=== PATIENT | male | born 1965 | race Caucasian/White ===

== ENCOUNTER 2024-04-29 20:14 | Inpatient (IN) | payer OTHER ==
[~2024-04-29] VITALS: Ht 165.1 cm; Wt 89.0 kg
[2024-04-29] MEDS: DILTIAZEM HCL 5MG/ML 5ML VIAL IV ONE ×2 (20:54→21:17)
[2024-04-29 21:20] LABS: EOSINOPHILS % 1.1 % (0.0-5.0); HEMOGLOBIN. 15.4 g/dL (14.0-18.0); LYMPHOCYTES % 36.8 % (20.0-50.0); MEAN CORPUSCULAR HEMOGLOBIN 29.5 pg (28.0-32.0); MEAN CORPUSCULAR HGB CONC 33.5 g/dL (31.0-37.0); MEAN CORPUSCULAR VOLUME 87.9 fL (80.0-94.0); MEAN PLATELET VOLUME 9.4 fl (7.4-10.4); MONOCYTES % 7.6 % (2.0-8.0); NEUTROPHILS % 53.5 % (40.0-76.0); PLATELET 207 x1000/uL (130-400); RED BLOOD CELL COUNT 5.23 mill/uL (4.7-6.1); RED CELL DISTRIBUTION WIDTH 13.4 % (11.6-14.6); WHITE BLOOD COUNT 6.6 x1000/uL (4.5-11.0)
[2024-04-29 21:26] LABS: CHLORIDE 110 mEq/L (98-107); POTASSIUM 3.7 mEq/L (3.5-5.1); SODIUM 142 mEq/L (136-145)
[2024-04-29 21:27] LABS: CALCIUM 9.9 mg/dL (8.7-10.4); CARBON DIOXIDE 28 mEq/L (21-32)
[2024-04-29 21:32] LABS: CREATININE 1.3 mg/dL (0.6-1.3); GLUCOSE 107 mg/dL (70-105); UREA NITROGEN BLOOD 18 mg/dL (9-23)
[2024-04-29 21:34] LABS: TROPONIN I HIGH SENSITIVITY 13 ng/L (3.0-53)
[2024-04-29] MEDS: ETOMIDATE 2MG/ML 10ML VIAL IV ONE (22:08)
[2024-04-29] MEDS ORDERED: DILTIAZEM HCL 120MG CAPSULE ER 24HR PO ONE (22:15)
[2024-04-29] MEDS ORDERED: MAGNESIUM/ALUMINUM HYDROXIDE/SIMETHICONE 30ML UDC PO PRN (22:30)
[2024-04-29] MEDS ORDERED: GUAIFENESIN 200MG/10ML SUGAR FREE UDC PO PRN (22:30)
[2024-04-29] MEDS ORDERED: CLONIDINE 0.1MG TABLET PO PRN (22:30)
[2024-04-29] MEDS ORDERED: ONDANSETRON HCL 4MG/2ML INJ IV PRN (22:30)
[2024-04-29] MEDS ORDERED: IPRATROPIUM/ALBUTEROL 0.5-3(2.5)MG/3ML NEB NEB PRN (22:30)
[2024-04-29] MEDS ORDERED: KETOROLAC 15MG/ML VIAL IV PRN (22:30)
[2024-04-29] MEDS ORDERED: DOCUSATE SODIUM 100MG CAPSULE PO PRN (22:30)
[2024-04-29] MEDS ORDERED: NITROGLYCERIN 0.4MG TABLET SL SL PRN (22:30)
[2024-04-29] MEDS ORDERED: ZOLPIDEM TARTRATE 5MG TABLET PO PRN (22:30)
[2024-04-29] MEDS ORDERED: ACETAMINOPHEN 325MG TABLET PO PRN ×2 (22:30)
[2024-04-29 23:06] LABS: IRON 69 ug/dL (65-175); TRIGLYCERIDE 165 mg/dL (0-150)
[2024-04-29 23:07] LABS: LDL CHOLESTEROL 119 mg/dL (5-100)
[2024-04-29 23:08] LABS: CHOLESTEROL 173 mg/dL (<200); HDL CHOLESTEROL 45 mg/dL (>55)
[2024-04-29 23:09] LABS: TOTAL IRON BINDING CAPACITY 108 ug/dl (250-425)
[2024-04-29 23:11] LABS: D-DIMER < 0.19 mg/L FEU (<0.50); INR 1.2
[2024-04-29 23:12] LABS: T4 FREE 1.62 ng/dL (0.89-1.76); THYROID STIMULATING HORMONE 4.34 uIU/mL (0.55-4.78); VITAMIN B12 SERUM 516 pg/mL (211-911)
[2024-04-29] MEDS: DILTIAZEM HCL 30MG TABLET PO NR (23:17)
[2024-04-29] MEDS: ENOXAPARIN 100MG/ML SYR SUBCUT NR (23:43)
[2024-04-30] MEDS ORDERED: DILTIAZEM HCL 30MG TABLET PO SCH
[2024-04-30 04:29] LABS: BASOPHILS % 0.9 % (0.0-2.0); EOSINOPHILS % 1.1 % (0.0-5.0); HEMATOCRIT. 44.8 % (42.0-52.0); HEMOGLOBIN. 14.6 g/dL (14.0-18.0); LYMPHOCYTES % 40.3 % (20.0-50.0); MEAN CORPUSCULAR HEMOGLOBIN 28.7 pg (28.0-32.0); MEAN CORPUSCULAR HGB CONC 32.7 g/dL (31.0-37.0); MEAN CORPUSCULAR VOLUME 87.8 fL (80.0-94.0); MEAN PLATELET VOLUME 8.7 fl (7.4-10.4); MONOCYTES % 7.1 % (2.0-8.0); NEUTROPHILS % 50.6 % (40.0-76.0); PLATELET 193 x1000/uL (130-400); RED CELL DISTRIBUTION WIDTH 13.6 % (11.6-14.6); WHITE BLOOD COUNT 7.1 x1000/uL (4.5-11.0)
[2024-04-30 04:38] LABS: CHLORIDE 110 mEq/L (98-107); POTASSIUM 3.9 mEq/L (3.5-5.1); SODIUM 142 mEq/L (136-145)
[2024-04-30 04:39] LABS: CALCIUM 9.4 mg/dL (8.7-10.4); CARBON DIOXIDE 28 mEq/L (21-32)
[2024-04-30 04:44] LABS: GLUCOSE 94 mg/dL (70-105); UREA NITROGEN BLOOD 18 mg/dL (9-23)
[2024-04-30 04:45] LABS: CREATINE KINASE MB FRACTION 2.3 ng/mL (0.5-3.6)
[2024-04-30 04:46] LABS: ALANINE AMINOTRANSFERASE 25 IU/L (10-49); ASPARTATE AMINOTRANSFERASE 17 IU/L (<34); BILIRUBIN TOTAL 0.5 mg/dL (0.1-1.0); PHOSPHORUS 3.9 mg/dL (2.5-4.9)
[2024-04-30 04:47] LABS: PROTEIN TOTAL 6.7 g/dL (6.0-8.3)
[2024-04-30] MEDS: DILTIAZEM HCL 30MG TABLET PO SCH (07:37)
[2024-04-30 08:00] VITALS: BP 120/66; PULSE 66; RESP 18; TEMP 36.50292; O2SAT 100
[2024-04-30 08:15] VITALS: BP 120/66; PULSE 66; RESP 18; TEMP 36.7516
[2024-04-30] MEDS: ENOXAPARIN 100MG/ML SYR SUBCUT SCH (09:24)
[2024-04-30] MEDS: FAMOTIDINE 20MG TABLET PO SCH (09:24)
[2024-04-30] MEDS: ASPIRIN 325MG EC TABLET PO SCH (09:24)
[2024-04-30 12:00] VITALS: BP 112/68; PULSE 70; RESP 18; TEMP 36.28068; O2SAT 96
[2024-04-30] MEDS: AMIODARONE 200MG TABLET PO SCH (14:20)
[2024-04-30 16:00] VITALS: BP 104/66; PULSE 74; RESP 18; TEMP 36.50292; O2SAT 98
[2024-04-30 16:52] LABS: CREATINE KINASE MB FRACTION 2.7 ng/mL (0.5-3.6)
[2024-04-30 20:00] VITALS: BP 144/77; PULSE 81; RESP 18; TEMP 36.3918; O2SAT 99
[2024-05-01] VITALS: BP 123/76; PULSE 64; RESP 19; TEMP 36.114; O2SAT 100
[2024-05-01 04:00] VITALS: BP 113/80; PULSE 74; RESP 19; TEMP 35.94732; O2SAT 100
[2024-05-01 08:00] VITALS: BP 141/94; PULSE 78; RESP 20; TEMP 36.44736; O2SAT 99
[2024-05-01 12:00] VITALS: BP 129/81; PULSE 88; RESP 19; TEMP 36.22512; O2SAT 100
[2024-05-01 16:00] VITALS: BP 126/78; PULSE 79; RESP 18; TEMP 36.33624; O2SAT 98
[2024-05-01 17:42] VITALS: BP 126/78; PULSE 79; TEMP 97.4; O2SAT 98
== END 2024-05-01 18:40 | disposition home or self-care (01) | DRG 310 ==
LOC: ER 20:14 → 5WST 22:11 → EDBEDREQ 22:23 → EDBEDREQTM 22:23 → 7EST 04-30 07:50
PROVIDERS: ADMIT Internal Medicine; ATTEND Internal Medicine
PROC: 5A2204Z Restoration of Cardiac Rhythm, Single (ICD-10-PCS; principal; 2024-04-29)
DX: I47.10 Supraventricular tachycardia, unspecified (principal); I48.91 Unspecified atrial fibrillation; I10 Essential (primary) hypertension; E03.9 Hypothyroidism, unspecified; E66.9 Obesity, unspecified; Z79.01 Long term (current) use of anticoagulants; Z68.32 Body mass index [BMI] 32.0-32.9, adult
CPT/HCPCS: 36415; 71045; 80048; 80053; 80061; 82550; 82553; 82607; 82746; 83036; 83540; 83550; 83605; 83735; 83880; 84100; 84145; 84439; 84443; 84484; 85025; 85379; 93005; 93306; 93970; 99291; J1650; J3490

== ENCOUNTER 2024-09-22 13:58 | Inpatient (IN) | payer OTHER ==
[~2024-09-22] VITALS: Ht 162.6 cm; Wt 86.2 kg
[2024-09-22 15:12] LABS: BASOPHILS % 0.6 % (0.0-2.0); HEMATOCRIT. 50.2 % (42.0-52.0); HEMOGLOBIN. 16.4 g/dL (14.0-18.0); LYMPHOCYTES % 14.9 % (20.0-50.0); MEAN CORPUSCULAR HEMOGLOBIN 28.1 pg (28.0-32.0); MEAN CORPUSCULAR HGB CONC 32.6 g/dL (31.0-37.0); MEAN CORPUSCULAR VOLUME 86.3 fL (80.0-94.0); MEAN PLATELET VOLUME 8.7 fl (7.4-10.4); MONOCYTES % 6.3 % (2.0-8.0); NEUTROPHILS % 77.2 % (40.0-76.0); PLATELET 217 x1000/uL (130-400); RED BLOOD CELL COUNT 5.82 mill/uL (4.7-6.1); RED CELL DISTRIBUTION WIDTH 13.9 % (11.6-14.6); WHITE BLOOD COUNT 7.3 x1000/uL (4.5-11.0)
[2024-09-22 15:17] LABS: CHLORIDE 104 mEq/L (98-107); POTASSIUM 4.3 mEq/L (3.5-5.1); SODIUM 141 mEq/L (136-145)
[2024-09-22 15:18] LABS: CALCIUM 9.7 mg/dL (8.7-10.4); CARBON DIOXIDE 30 mEq/L (21-32)
[2024-09-22 15:23] LABS: GLUCOSE 111 mg/dL (70-105); UREA NITROGEN BLOOD 13 mg/dL (9-23)
[2024-09-22 15:31] LABS: TROPONIN I HIGH SENSITIVITY < 4 ng/L (3.0-53)
[2024-09-22] MEDS: MECLIZINE 25MG TABLET PO ONE (19:54)
[2024-09-22] MEDS: SODIUM CHLORIDE 0.9% 1,000 ML IV ONE (20:01)
[2024-09-22] MEDS: ONDANSETRON HCL 4MG/2ML INJ IV ONE (20:01)
[2024-09-22] MEDS ORDERED: SIMV10TA97 MT (23:22)
[2024-09-22] MEDS ORDERED: METO25TA6 PO (23:22)
[2024-09-22] MEDS ORDERED: AMIO100T4 PO (23:22)
[2024-09-22] MEDS ORDERED: RIVA10TA MT (23:22)
[2024-09-22 23:39] VITALS: BP 136/65; PULSE 78; RESP 18; TEMP 36.7
[2024-09-23] VITALS: BP 130/80; PULSE 72; RESP 20; TEMP 36.1; O2SAT 96
[2024-09-23] MEDS ORDERED: MECLIZINE 25MG TABLET PO PRN (03:00)
[2024-09-23] MEDS ORDERED: IPRATROPIUM/ALBUTEROL 0.5-3(2.5)MG/3ML NEB HHN PRN (03:00)
[2024-09-23] MEDS ORDERED: ONDANSETRON HCL 4MG/2ML INJ IV PRN (03:00)
[2024-09-23] MEDS ORDERED: ACETAMINOPHEN 325MG TABLET PO PRN ×2 (03:00)
[2024-09-23 04:00] VITALS: BP 128/63; PULSE 74; RESP 20; TEMP 36.4; O2SAT 98
[2024-09-23] MEDS ORDERED: HYDRALAZINE 20MG/ML VIAL IV PRN (04:00)
[2024-09-23] MEDS: SODIUM CHLORIDE 0.9% 1,000 ML IV SCH (04:12)
[2024-09-23] MEDS: ENOXAPARIN 100MG/ML SYR SUBCUT SCH (05:09)
[2024-09-23 07:34] LABS: PROTHROMBIN TIME 11.1 sec (9.6-11.0)
[2024-09-23 08:00] VITALS: BP 100/60; PULSE 66; RESP 20; TEMP 36.6; O2SAT 97
[2024-09-23 08:06] LABS: INFLUENZA TYPE A Presumptive Negative (Pres. Neg.); INFLUENZA TYPE B Presumptive Negative (Pres. Neg.)
[2024-09-23 08:07] LABS: RESPIRATORY SYNCYTIAL VIRUS Not Detected (Not Detectd)
[2024-09-23] MEDS: METOPROLOL TARTRATE 25MG TABLET PO SCH (09:11)
[2024-09-23 09:12] LABS: CLARITY URINE CLEAR (CLEAR); COLOR URINE YELLOW (YELLOW); GLUCOSE URINE NEGATIVE (NEGATIVE); KETONES URINE NEGATIVE (NEGATIVE); LEUKOCYTE ESTERASE URINE NEGATIVE (NEGATIVE); NITRITE URINE NEGATIVE (NEGATIVE); OCCULT BLOOD URINE NEGATIVE (NEGATIVE); PROTEIN URINE NEGATIVE (NEGATIVE); SPECIFIC GRAVITY URINE 1.025 (1.005-1.030)
[2024-09-23] MEDS: PANTOPRAZOLE SODIUM 40 MG/VIAL IV SCH (09:29)
[2024-09-23 09:51] LABS: *AMPHETAMINES SCREEN URINE NEGATIVE (NEGATIVE)
[2024-09-23 09:52] LABS: *BARBITURATES SCREEN URINE NEGATIVE (NEGATIVE); *BENZODIAZEPINES SCREEN URINE NEGATIVE (NEGATIVE); *COCAINE SCREEN URINE NEGATIVE (NEGATIVE); CANNABINOID URINE SCREEN NEGATIVE (NEGATIVE); ECSTASY MDMA SCREEN URINE NEGATIVE (NEGATIVE); METHADONE URINE SCREEN NEGATIVE (NEGATIVE); OPIATES URINE SCREEN NEGATIVE (NEGATIVE); PHENCYCLIDINE URINE SCREEN NEGATIVE (NEGATIVE)
[2024-09-23 12:00] VITALS: BP 128/76; PULSE 86; RESP 18; TEMP 36.7; O2SAT 97
[2024-09-23 16:00] VITALS: BP 138/79; PULSE 88; RESP 18; TEMP 36.5; O2SAT 98
[2024-09-23] MEDS ORDERED: MECL-299 PO (16:33)
[2024-09-23 16:43] VITALS: BP 100/60; PULSE 66; TEMP 98.2; O2SAT 98
[2024-09-23] MEDS ORDERED: ATORVASTATIN CALCIUM 40MG TABLET PO SCH (21:00)
== END 2024-09-23 17:53 | disposition home or self-care (01) | DRG 866 ==
LOC: ER 13:58 → 7WST 22:30 → EDBEDREQTM 22:33 → EDBEDREQ 22:33
PROVIDERS: ADMIT Internal Medicine; ATTEND Internal Medicine
DX: B33.8 Other specified viral diseases (principal); I47.10 Supraventricular tachycardia, unspecified; I48.0 Paroxysmal atrial fibrillation; I10 Essential (primary) hypertension; E07.9 Disorder of thyroid, unspecified; Z79.01 Long term (current) use of anticoagulants
CPT/HCPCS: 36415; 71045; 80048; 80305; 81003; 83605; 83880; 84145; 84484; 85025; 87420; 87804; 93005; 97165; 99285; J1650; J2405; J2470; J7030; J8597